=== PATIENT | male | born 1970 | race Caucasian/White ===

== ENCOUNTER 2021-03-24 06:17 | Outpatient (REF) | payer OTHER, SELFPAY ==
[2021-03-24 11:23] LABS: MANUAL DIFF FLAG NO
[2021-03-24 11:40] LABS: Basophils Absolute Auto 0.1 X10*3/uL (0.0-0.2); Basophils Percent Auto 0.9 % (0-2); Eosinophils Absolute Auto 0.3 X10*3/uL (0.0-0.4); Eosinophils Percent Auto 4.7 % (0-4); Hemoglobin 14.8 g/dl (14.0-18.0); Imm Gran Abs Auto 0.02 X10*3/uL (0.00-0.03); Imm Gran Pct Auto 0.4 % (0.0-0.4); Lymphocytes Absolute Auto 1.3 X10*3/uL (1.2-4.9); Mean Corpuscular HGB Conc 33.6 g/dl (31.0-36.0); Mean Corpuscular Hemoglobin 28.5 pg (27.0-33.0); Mean Corpuscular Volume 84.8 fL (80-98); Mean Platelet Volume 10.7 fL (9.4-12.4); Monocytes Absolute Auto 0.6 X10*3/uL (0.1-1.2); Monocytes Percent Auto 11.3 % (2-11); Neutrophils Absolute Auto 3.3 X10*3/uL (2.0-8.3); Neutrophils Percent Auto 59.7 % (45-73); Platelet Count 255 X10*3/uL (160-400); Red Blood Count 5.19 X10*6/uL (4.60-5.80); Red Cell Distribution Width 13.3 % (11.0-16.0); White Blood Count 5.6 X10*3/uL (4.8-10.8)
[2021-03-24 12:09] LABS: Alanine Aminotransferase 19 U/L (0-40); Albumin Level 4.1 g/dL (3.5-5.0); Alkaline Phosphatase 51 U/L (39-117); Anion Gap 14 (12-20); Aspartate Amino Transferase 17 U/L (5-37); Bilirubin Total 0.6 mg/dL (0.0-1.0); Blood Urea Nitrogen 15 mg/dL (9-16); Calcium 9.5 mg/dL (8.4-10.2); Carbon Dioxide 26 mmol/L (22-29); Chloride 104 mmol/L (96-108); Cholesterol 177 mg/dL; Estimated Glomerular Filt Rate > 60; Glucose Random 115 mg/dL (60-115); HDL Cholesterol 29 mg/dL; LDL Cholesterol Calculated 114 mg/dl; Sodium 140 mmol/L (135-145); Total Protein 6.8 g/dL (6.5-8.0); Triglycerides 171 mg/dL
[2021-03-24 12:11] LABS: Estimated Average Glucose 114 mg/dL; Hemoglobin A1C 148.4733 umol/L; Hemoglobin A1c % 5.6 %
[2021-03-24 12:18] LABS: HIV AB/AG Nonreactive (Nonreactive); HIV Num 1 0.06 S/CO (0.00-0.99); ~HepC Num1 0.13 S/CO (0.00-0.79); ~Hepatitis C Antibody Nonreactive (Nonreactive)
== END 2021-03-24 06:18 | disposition home or self-care (01) ==
LOC: HO.HMGCLDS 06:17
PROVIDERS: PCP Internal Medicine; Visit Provider Internal Medicine
DX: Z11.59 Encounter for screening for other viral diseases (principal); Z11.4 Encounter for screening for human immunodeficiency virus [HIV]; E78.2 Mixed hyperlipidemia; I10 Essential (primary) hypertension; E66.01 Morbid (severe) obesity due to excess calories; Z68.42 Body mass index [BMI] 45.0-49.9, adult; R73.01 Impaired fasting glucose
CPT/HCPCS: 36415; 80053; 80061; 83036; 84443; 85025; 86803; 87389

== ENCOUNTER 2021-07-21 07:01 | Outpatient (REF) | payer OTHER, SELFPAY ==
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
--- NOTE | ~2021-07-21 | XR_ITS ---
EXAMINATION: XR SHOULDER, RIGHT CLINICAL INFORMATION: Acute pain right shoulder. COMPARISON: None TECHNIQUE: AP external rotation, Grashey, scapular Y, and axillary views of the right shoulder. FINDINGS: No fracture, malalignment or other acute abnormality. Minimal degenerative changes are noted at the acromioclavicular joint. Mild enthesopathic changes are noted at the greater tuberosity of the proximal humerus. XR/XR shoulder RT min 2V IMPRESSION: No acute abnormality. Chronic changes as noted.
== END 2021-07-21 07:02 | disposition home or self-care (01) ==
LOC: HO.XRAY 07:01
PROVIDERS: PCP Internal Medicine; Visit Provider Internal Medicine
DX: M25.511 Pain in right shoulder (principal); M54.2 Cervicalgia; V87.7XXD Person injured in collision between other specified motor vehicles (traffic), subsequent encounter
CPT/HCPCS: 72040; 73030

== ENCOUNTER 2021-12-22 10:08 | Day surgery (SDC) | payer OTHER, SELFPAY ==
[2021-12-14 14:39] VITALS: BMI 45.7
[2021-12-22 11:05] VITALS: BP 149/90; PULSE 77; RESP 18; TEMP 37.2; O2SAT 96
--- NOTE | 2021-12-22 11:58 | P.CONAN_ITS ---
HPI - Anesthesia Eval Consult details Narrative: 51 M for colonoscopy [facility] Past Medical History Medical History (Updated 12/14/21 @ 14:37 by La Rincon RN) COVID-19 vaccine series completed Hypertension Neurofibromatosis Family History Family history of problems with anesthesia: No Surgical History Surgical History (Updated 12/14/21 @ 14:22 by La Rincon RN) History of excision of lesion S/P repair of hydrocele History of Problems with Anesthesia: No Social History Social History Are you a primary customer care representative to a significant other at home: No Do you presently have visiting nurse or other home services: No Patient Tobacco Use Status: Never used Tobacco Use of substances other than those prescribed or required for medical reasons: No Have you been hit, kicked, punched, or otherwise hurt by someone within the past year? If so, by whom?: No Are you DNR?: No Advance Directives: No Advance Directives Information Provided: Yes (as above noted) Advance Directives on File: No Eating poorly because of decreased appetite: No Nutrition Risks: No Nutritional Risk Meds Allergies Allergy/AdvReac Type Severity Reaction Status Date / Time oxycodone [From PERCOCET] Allergy Intermediate VOMIT/NAUSE Verified 12/22/21 11:50 A Active Medications: Current Medications Sodium Biphosphate/Sodium Phosphate (Sodium Phosphate,Linn-Dibasic 133 Ml Enema) 133 ml AL ONCE PRN PRN Reason: Poor Colonoscopy Prep Results Home Medications Medication Instructions Recorded Confirmed Last Taken Type amlodipine 5 mg tablet 1 tab PO DAILY 12/14/21 12/14/21 Unknown History carvedilol 25 mg tablet 1 tab PO BID 12/14/21 12/14/21 Unknown History chlorthalidone 25 mg tablet 1 tab PO DAILY 12/14/21 12/14/21 Unknown History hydralazine 10 mg tablet 1 tab PO BID 12/14/21 12/14/21 Unknown History olmesartan 40 mg tablet 1 tab PO DAILY 12/14/21 12/14/21 Unknown History Exam Exam Date and Time: December 22, 2021 1158 Height,Weight and Vital Signs: Height 6 ft 2 in Weight 161.479 kg Last Vital Signs Temp 98.9 F 12/22/21 11:05 Pulse 77 12/22/21 11:05 Resp 18 12/22/21 11:05 BP 149/90 H 12/22/21 11:05 Pulse Ox 96 12/22/21 11:05 Airway Mallampati Class: IV Neck ROM: Full Loose/Missing/Broken Teeth: Yes (Chipped ) Heart: S1 S2 Lungs: b/l breath sounds Assessment and Plan Assessment Anesthesia Assessment: Anesthesia Plan Discussed and Chart Reviewed Final Anesthetic Review Family History of Problems with Anesthesia: No History of Problems with Anesthesia: No NPO: Yes ASA Class: III Final Preanesthetic Review: Meds/Allgs Chart Reviewed, Consent Obtained/Reviewed and Anes Risks/Benef Reviewed Patient Risk: High Procedure Risk: Intermediate Anesthetic Plan Anesthetic Plan: MAC: Disposition: Standard PACU
[2021-12-22] MEDS: Lactated Ringers 1,000 ML 80 ML IVCONT (12:27)
[2021-12-22 13:45] VITALS: BP 129/80; PULSE 83; RESP 14; TEMP 36.1; O2SAT 97
--- NOTE | 2021-12-22 13:46 | P.BOP_ITS ---
Brief Operative Note Date of Service: 12/22/21 Pre-op diagnosis: Screening Post-op diagnosis: other (Colon polyps) Procedure: Colonoscopy to the cecum and TI with cold snare polypectomy x 2 Surgeon: eNy Rhodes Anesthesia: MAC Was an Computer Aided Design Drafter used for this Procedure?: No Estimated blood loss (mL): 2.0 Pathology: other (A. Polyp at 60cm B. Polyp at 20cm) Condition: stable Disposition: PACU
[2021-12-22 14:00] VITALS: BP 144/71; PULSE 78; RESP 18; TEMP 36.1; O2SAT 95
--- NOTE | 2021-12-23 01:56 | OP_ITS ---
SURGEON: Ney Rhodes MD INDICATIONS: The patient presents for evaluation of colorectal cancer screening. Full consent has been obtained from him for this, including risks of bleeding and perforation. PREOPERATIVE DIAGNOSIS: Colorectal cancer screening. POSTOPERATIVE DIAGNOSIS: PROCEDURE PERFORMED: Colonoscopy to the cecum and terminal ileum with cold snare polypectomy x2. ESTIMATED BLOOD LOSS: COMPLICATIONS: ANESTHESIA: Medications used; monitored anesthesia care. ASSISTANTS: SPECIMENS: POSTOPERATIVE DIAGNOSES: Colorectal cancer screening, colon polyps, diverticulosis and internal hemorrhoids. DESCRIPTION OF PROCEDURE: The patient was placed in the left lateral decubitus position. The digital rectal exam revealed no abnormalities. The Olympus video pediatric colonoscope was entered into the rectum and advanced easily to the cecum. Once in the cecum, I did identify normal-appearing cecal pouch with appendiceal orifice and a normal-appearing ileocecal valve. The terminal ileum was cannulated and appeared normal. The scope was withdrawn back in the colon. The entire cecum and ileocecal valve appeared normal. The scope was slowly withdrawn assessing all mucosal surfaces carefully. Preparation was excellent. At 60 cm and at 20 cm were approximately 4 or 5 mm polyps, which were each removed by cold snare polypectomy and recovered by suction. Both polypectomy sites appeared clean, without any sign of residual polyp nor significant bleeding. I did not visualize any other polyps, colitis, nor angiodysplasias. There was a mild amount of sigmoid diverticulosis. In the rectum, the scope was retroflexed visualizing internal hemorrhoids, but no other pathology. The rectal mucosa appeared normal. Scope was straightened and withdrawn from the patient. He tolerated the procedure well and was returned to the recovery area in stable condition. IMPRESSION: 1. Small colon polyps, status post cold snare polypectomy. 2. Diverticulosis. 3. Internal hemorrhoids. PLAN: The results of the pathology will be checked. If either of these are tubular adenoma, I would recommend a followup coloscopy in 5 years. If they are only hyperplastic, I would recommend a followup coloscopy in 10 years. He was advised not to use any aspirin and NSAIDs for 1 week. MD GERMAIN Salinas/LEON / [phone]
== END 2021-12-22 14:35 | disposition home or self-care (01) ==
PROVIDERS: PCP Internal Medicine; Visit Provider Internal Medicine
PROC: 0DJD8ZZ Inspection of Lower Intestinal Tract, Via Natural or Artificial Opening Endoscopic (ICD-10-PCS; CPT 45378; principal; 2021-12-22 11:40)
DX: Z12.11 Encounter for screening for malignant neoplasm of colon (principal); D12.4 Benign neoplasm of descending colon; K63.5 Polyp of colon; K57.30 Diverticulosis of large intestine without perforation or abscess without bleeding; K64.8 Other hemorrhoids; I10 Essential (primary) hypertension; Q85.00 Neurofibromatosis, unspecified; Z79.899 Other long term (current) drug therapy; Z88.8 Allergy status to other drugs, medicaments and biological substances
CPT/HCPCS: 45385; 88305; J2250

== ENCOUNTER 2022-04-16 06:38 | Outpatient (REF) | payer OTHER, SELFPAY ==
[2022-04-16 11:38] LABS: MANUAL DIFF FLAG NO
[2022-04-16 11:47] LABS: Basophils Absolute Auto 0.1 X10*3/uL (0.0-0.2); Basophils Percent Auto 1.2 % (0-2); Eosinophils Absolute Auto 0.2 X10*3/uL (0.0-0.4); Eosinophils Percent Auto 4.2 % (0-4); Hematocrit 41.5 % (42.0-52.0); Hemoglobin 14.1 g/dl (14.0-18.0); Imm Gran Abs Auto 0.03 X10*3/uL (0.00-0.03); Imm Gran Pct Auto 0.5 % (0.0-0.4); Lymphocytes Absolute Auto 1.3 X10*3/uL (1.2-4.9); Lymphocytes Percent Auto 22.5 % (20-40); Mean Corpuscular Hemoglobin 28.5 pg (27.0-33.0); Mean Platelet Volume 10.1 fL (9.4-12.4); Monocytes Absolute Auto 0.6 X10*3/uL (0.1-1.2); Monocytes Percent Auto 10.9 % (2-11); Neutrophils Absolute Auto 3.5 x10*3/uL (2.0-8.3); Neutrophils Percent Auto 60.7 % (45-73); Platelet Count 214 X10*3/uL (160-400); Red Blood Count 4.94 X10*6/uL (4.60-5.80); Red Cell Distribution Width 14.4 % (11.0-16.0); White Blood Count 5.7 X10*3/uL (4.8-10.8)
[2022-04-16 11:57] LABS: Estimated Average Glucose 94 mg/dL; Hemoglobin A1c % 4.9 %
[2022-04-16 12:01] LABS: Alanine Aminotransferase 23 U/L (0-40); Albumin Level 4.1 g/dL (3.5-5.0); Alkaline Phosphatase 54 U/L (39-117); Anion Gap 14 (12-20); Aspartate Amino Transferase 18 U/L (5-37); Bilirubin Total 0.9 mg/dL (0.0-1.0); Blood Urea Nitrogen 19 mg/dL (9-16); Calcium 9.5 mg/dL (8.4-10.2); Carbon Dioxide 27 mmol/L (22-29); Chloride 102 mmol/L (96-108); Cholesterol 177 mg/dL; Estimated Glomerular Filt Rate > 60; Glucose Random 115 mg/dL (60-115); HDL Cholesterol 36 mg/dL; LDL Cholesterol Calculated 111 mg/dl; Potassium 4.2 mmol/L (3.3-5.1); Sodium 139 mmol/L (135-145); Triglycerides 150 mg/dL
[2022-04-16 12:14] LABS: Appearance Urine CLEAR; Color Urine YELLOW; Glucose Urine UA NEG (NEG); Leukocyte Esterase Urine NEG (NEG); Nitrite Urine NEG (NEG); Specific Gravity - Urine 1.025 (1.005-1.025); Urine Blood NEG (NEG); Urine Ketones NEG (NEG); Urine Protein NEG (NEG-TRACE)
[2022-04-16 12:24] LABS: Thyroid Stimulating Hormone 1.31 uIU/mL (0.32-4.0)
== END 2022-04-16 06:39 | disposition home or self-care (01) ==
LOC: HO.HMGCLDS 06:38
PROVIDERS: PCP Internal Medicine; Visit Provider Internal Medicine
DX: I10 Essential (primary) hypertension (principal); R73.01 Impaired fasting glucose; E78.2 Mixed hyperlipidemia; R73.9 Hyperglycemia, unspecified
CPT/HCPCS: 36415; 80053; 80061; 81003; 83036; 84439; 84443; 85025

== ENCOUNTER 2023-01-22 06:04 | Outpatient (REF) | payer OTHER, SELFPAY ==
[2023-01-22 11:18] LABS: MANUAL DIFF FLAG NO
[2023-01-22 11:36] LABS: Basophils Absolute Auto 0.1 X10*3/uL (0.0-0.2); Basophils Percent Auto 1.2 % (0-2); Eosinophils Absolute Auto 0.3 X10*3/uL (0.0-0.4); Eosinophils Percent Auto 3.6 % (0-4); Hematocrit 44.2 % (42.0-52.0); Hemoglobin 14.6 g/dl (14.0-18.0); Imm Gran Abs Auto 0.01 X10*3/uL (0.00-0.03); Imm Gran Pct Auto 0.1 % (0.0-0.4); Lymphocytes Absolute Auto 1.3 X10*3/uL (1.2-4.9); Lymphocytes Percent Auto 17.8 % (20-40); Mean Corpuscular Hemoglobin 27.1 pg (27.0-33.0); Mean Platelet Volume 10.7 fL (9.4-12.4); Monocytes Absolute Auto 0.9 X10*3/uL (0.1-1.2); Monocytes Percent Auto 12.9 % (2-11); Neutrophils Absolute Auto 4.6 x10*3/uL (2.0-8.3); Neutrophils Percent Auto 64.4 % (45-73); Platelet Count 255 X10*3/uL (160-400); Red Blood Count 5.39 X10*6/uL (4.60-5.80); Red Cell Distribution Width 13.7 % (11.0-16.0); White Blood Count 7.2 X10*3/uL (4.8-10.8)
[2023-01-22 12:00] LABS: Alanine Aminotransferase 28 U/L (0-40); Albumin Level 4.1 g/dL (3.5-5.0); Alkaline Phosphatase 51 U/L (39-117); Anion Gap 12 (12-20); Aspartate Amino Transferase 21 U/L (5-37); Bilirubin Total 0.6 mg/dL (0.0-1.0); Blood Urea Nitrogen 26 mg/dL (9-16); Calcium 9.1 mg/dL (8.4-10.2); Carbon Dioxide 25 mmol/L (22-29); Chloride 107 mmol/L (96-108); Cholesterol 181 mg/dL; Estimated Glomerular Filt Rate > 60; Glucose Random 118 mg/dL (60-115); HDL Cholesterol 37 mg/dL; LDL Cholesterol Calculated 129 mg/dl; Sodium 140 mmol/L (135-145); Total Protein 6.8 g/dL (6.5-8.0); Triglycerides 76 mg/dL
[2023-01-22 12:23] LABS: Prostate Specific Antigen 1.49 ng/mL (<0.05-4.0)
== END 2023-01-22 06:05 | disposition home or self-care (01) ==
LOC: HO.HMGCLDS 06:04
PROVIDERS: PCP Internal Medicine; Visit Provider Internal Medicine
DX: E78.2 Mixed hyperlipidemia (principal); I10 Essential (primary) hypertension; R73.01 Impaired fasting glucose; Z12.5 Encounter for screening for malignant neoplasm of prostate
CPT/HCPCS: 36415; 80053; 80061; 84153; 85025

== ENCOUNTER 2023-08-06 06:14 | Outpatient (REF) | payer OTHER, SELFPAY ==
[2023-08-06 11:10] LABS: Estimated Average Glucose 105 mg/dL; Hemoglobin A1c % 5.3 % (<6.0)
[2023-08-06 11:46] LABS: Alanine Aminotransferase 23 U/L (0-40); Albumin Level 4.1 g/dL (3.5-5.0); Alkaline Phosphatase 55 U/L (39-117); Anion Gap 13 (12-20); Aspartate Amino Transferase 17 U/L (5-37); Bilirubin Total 0.9 mg/dL (0.0-1.0); Blood Urea Nitrogen 23 mg/dL (9-16); Calcium 9.5 mg/dL (8.4-10.2); Carbon Dioxide 26 mmol/L (22-29); Chloride 105 mmol/L (96-108); Cholesterol 191 mg/dL (<200); Estimated Glomerular Filt Rate > 60; Glucose Random 111 mg/dL (60-115); HDL Cholesterol 39 mg/dL (>40); LDL Cholesterol Calculated 117 mg/dL (<100); Potassium 3.7 mmol/L (3.3-5.1); Sodium 140 mmol/L (135-145); Thyroid Stimulating Hormone 1.36 uIU/mL (0.32-4.0); Total Protein 7.2 g/dL (6.5-8.0); Triglycerides 176 mg/dL (<150)
== END 2023-08-06 06:15 | disposition home or self-care (01) ==
LOC: HO.HMGCLDS 06:14
PROVIDERS: PCP Internal Medicine; Visit Provider Internal Medicine
DX: E78.2 Mixed hyperlipidemia (principal); R73.01 Impaired fasting glucose; I10 Essential (primary) hypertension
CPT/HCPCS: 36415; 80053; 80061; 83036; 84443